=== PATIENT | female | born 1975 | race Caucasian/White ===

== ENCOUNTER 2018-08-28 10:59 | Outpatient (REF) | payer BC, SELFPAY ==
--- NOTE | 2018-08-28 10:00 | PAPFT_PTH ---
PATIENT: Ana Lorenz LOC: [facility] U#:[id number] AGE/SX: 43/F ROOM: RE08/28/[address]: CHARISMA Toribio : 1975 BED: DIS: 08/28/2018 SPEC #: [id number] RECD: 08/28/18 17:52 STATUS: SANTA REQ #: [id number] MEENA: 08/28/18 10:[address]: Estefanía Jenkins DEPT: [facility] Cytology RECD BY: Teressa Davis ENTERED: 08/28/18 17:52 SP TYPE: PAPFT OTHR DR: Rosina Collins V Tissues: 1 - CX/ENDOCX FOR PAP SMEARS Procedures: PAP THIN PREP/UVM Screening HPV DNA PROBE Comments: [id number]
[2018-08-29 14:34] LABS: Chlamydia Result Negative; GC Result Negative; Specimen Description CERVIX
== END 2018-08-28 11:19 ==
LOC: LBN 10:59
PROVIDERS: PCP Family Medicine; Visit Provider Nurse Practitioner Family
DX: Z11.3 Encounter for screening for infections with a predominantly sexual mode of transmission (principal); Z12.4 Encounter for screening for malignant neoplasm of cervix; Z11.51 Encounter for screening for human papillomavirus (HPV)
CPT/HCPCS: 87491; 87591; 88142; 87624

== ENCOUNTER 2018-09-25 00:29 | Outpatient (CLI) | payer BC, SELFPAY ==
--- NOTE | 2018-09-25 16:18 | DI.MAMMO_ITS ---
SYMPTOM/DIAGNOSIS: SCREENING Z12.31 MAMMOGRAM: 09/25 Mammograms were interpreted according to the usual protocol including computer analysis with CAD system, tomosynthesis and C view imaging. The breasts are heterogeneously dense. No dominant mass or clumped microcalcification identified in either breast. Today's examination is a baseline examination. CONCLUSION: No specific evidence of malignancy at this time. Routine screening examinations are suggested at yearly intervals due to the family history of breast carcinoma. Category 1, breast density category C. SA ASSESSMENT OF FINDINGS: Negative. Category 1. Patient will receive a letter notifying them of these results. Bi-RADS category C. The breasts are heterogeneously dense, which may obscure small masses.
== END 2018-09-25 00:49 ==
PROVIDERS: PCP Family Medicine; Visit Provider Nurse Practitioner Family
DX: Z12.31 Encounter for screening mammogram for malignant neoplasm of breast (principal); Z80.3 Family history of malignant neoplasm of breast
CPT/HCPCS: 77063; 77067

== ENCOUNTER 2021-09-07 15:56 | Outpatient (REF) | payer BC, SELFPAY ==
--- NOTE | 2021-09-07 14:30 | PAPFT_PTH ---
PATIENT: Ana Lorenz LOC: [facility] U#:[id number] AGE/SX: 46/F ROOM: RE09/07/[address]: CHARISMA Toribio : 1975 BED: DIS: 09/07/2021 SPEC #: [id number] RECD: 09/07/21 17:50 STATUS: SANTA REQ #: [id number] MEENA: 09/07/21 14:[address]: Estefanía Jenkins DEPT: [facility] Cytology RECD BY: Teressa Davis ENTERED: 09/07/21 17:50 SP TYPE: PAPFT OTHR DR: Rosina Collins V Tissues: 1 - CX/ENDOCX FOR PAP SMEARS Procedures: PAP THIN PREP/UVM Screening HPV DNA PROBE Comments: [id number]
== END 2021-09-07 15:57 | disposition home or self-care (01) ==
LOC: LBN 15:56
PROVIDERS: PCP Family Medicine; Visit Provider Nurse Practitioner Family
DX: Z12.4 Encounter for screening for malignant neoplasm of cervix (principal); Z11.51 Encounter for screening for human papillomavirus (HPV)
CPT/HCPCS: 88142; 87624

== ENCOUNTER → 2021-10-18 00:12 | Outpatient (CLI) | payer BC, SELFPAY ==
--- NOTE | 2021-10-18 16:30 | DI.MAMMO_ITS ---
Exam(s) MAMMO SCREENING EXAM: MAMMO SCREENING CLINICAL HISTORY: screening TECHNIQUE: Mammograms were interpreted according to the usual protocol including computer analysis w [employer] CAD system, tomosynthesis and C-view imaging. COMPARISON: 2019 FINDINGS: The breasts are composed of heterogeneously dense fibroglandular densities, Breast Density category C . No suspicious masses or suspicious microcalcifications are seen. No skin thickening or abnormal axillary lymph nodes are seen. There has been no significant change from prior exams. IMPRESSION: BI-RADS Category 1, Negative mammogram. Yearly screening mammography is recommended. Breast Density Category C, heterogeneously Dense. The mammogram demonstrates the patient's breast tissue is dense. Dense breast tissue is very common a nd is not abnormal but dense breast tissue can make it harder to find cancer on a mammogram. Also, de nse breast tissue may increase breast cancer risk. This information about the result of the mammogram report was provided to the patient to raise their awareness. Use this report when you speak with the patient about their risks for breast cancer, which includes their family history. At that time, you may recommend additional screening tests (Ultrasound or MRI) as they might be useful based on their r isk. A negative radiographic report should not delay biopsy if a dominant or clinically suspicious mass is present. Up to ten percent of cancers are not identified on mammography. A negative report may reinforce clinical impression. Adenosis and dense breasts may obscure an underlying neoplasm. False positive reports average 6 to 10%.
== END ==
PROVIDERS: PCP Family Medicine; Visit Provider Nurse Practitioner Family
DX: Z12.31 Encounter for screening mammogram for malignant neoplasm of breast (principal)
CPT/HCPCS: 77063; 77067

== ENCOUNTER 2022-08-21 07:39 | Day surgery (SDC) | payer BC, SELFPAY ==
[2022-08-21 08:05] VITALS: BP 112/62; PULSE 55; RESP 17; TEMP 36.3; O2SAT 98
[2022-08-21] MEDS: Lactated Ringers 1,000 ML 80 ML IV (08:25)
--- NOTE | 2022-08-21 08:42 | W.ANESPRE ---
General Info Date of Service Date Performed: 08/21/22 Height: 5 ft 5 in Weight: 75.8 kg Body Mass Index (BMI): 27.8 Surgical Procedure: Operation Date: 08/21/22 09:05 Proposed Procedure Side Surgeon p Colonoscopy Davie Ace MD Meds Allergies and Home Medications Allergies Allergy/AdvReac Type Severity Reaction Status Date / Time Sulfa (Sulfonamide Allergy Intermediate Rash Verified 08/21/22 08:15 Antibiotics) Penicillins Allergy Verified 08/21/22 08:15 Home Medication Medication Instructions Recorded levonorgestrel 21 mcg/24 hours (8 1 device intrauterine ONCE 11/10/18 yrs) 52 mg intrauterine device (Mirena) fexofenadine 60 mg tablet ([place]iet[place] 60 mg PO DAILY 09/07/21 Allergy) fluticasone propionate 50 1 spray intranasal DAILY PRN 09/07/21 mcg/actuation nasal spray,suspension (Flonase Allergy Relief) bisacodyl 5 mg tablet,delayed 5 mg PO ONCE colonscopy bowel prep 08/02/22 release (Dulcolax (bisacodyl)) #4 tabs polyethylene glycol 3350 17 238 g PO ONCE colonoscopy prep 08/02/22 gram/dose oral powder #238 grams Current Visit Medications: Current Medications Generic Name Dose Route Start Last Admin Trade Name Freq PRN Reason Stop Dose Admin Ringer's Solution 1,000 mls @ 80 mls/hr 08/21/22 06:00 08/21/22 08:25 IV 08/21/22 23:59 80 mls/hr INFUSION ISAÍAS Administration IV Miscellaneous Supplies 1 each 08/21/22 06:00 Iv Access IV 08/21/22 23:59 DIRECTED ISAÍAS Sodium Chloride 0 ml 08/21/22 06:00 Normal Saline Flush 10 Ml Syr IV 08/21/22 23:59 PRN PRN Sodium Chloride 0 ml 08/21/22 06:00 Normal Saline 10 Ml Vial IJ 08/21/22 23:59 DIRECTED PRN Sterile Water 0 ml 08/21/22 06:00 Water,Injection,Sterile 10 Ml Vial IJ 08/21/22 23:59 DIRECTED PRN PFSH Active Problems Active Problems: Problem Status Onset Code Encounter for insertion of mirena IUD Z30.430 Asthma J45.909 IUD surveillance Z30.431 Medical History Medical History Colon cancer screening Food allergy History of tobacco use Sinus congestion Tobacco Smoking/Tobacco Use Status: Former Tobacco Use Alcohol Alcohol Intake: never Substance Use Substance use: Never Substance use type: does not use Prental History History 3 Para 3 Hx # Term Pregnancies Multiple births Hx # Pregnancies Ectopic pregnancies AB induced Hx Number of Living Children AB spontaneous Vital Signs and Lab Results Vital Signs Most Recent Vital Signs in EMR: Most Recent Vital Signs Temp Pulse Resp BP Pulse Ox 36.3 C L 55 L 17 112/62 98 08/21/22 08:05 08/21/22 08:05 08/21/22 08:05 08/21/22 08:05 08/21/22 08:05 Point of Care Results Point of Care Results: POC- Test(urine) Negative 08/21/22 08:17 Lab Results Blood Type / Crossmatch: No Data to Display Complete Blood Count: No Data to Display Complete Metabolic Panel: No Data to Display Liver Function Panel: No Data to Display Coagulation Panel: No Data to Display Cardiac Panel: No Data to Display Arterial Blood Gas: No Data to Display Venous Blood Gas: No Data to Display Pancreas Panel: No Data to Display Thyroid Panel: No Data to Display Infectious Disease: No Data to Display Blood Cultures: No Data to Display Toxicology Panel: No Data to Display Panel: No Data to Display Anesthesia Assessment and Plan Anesthesia History Personal History: No History of General Anesthesia Family History: No Family History of Anesthesia Complications Exercise Tolerance Exercise Tolerance: Metabolic Equivalents>4 Pertinent Negatives Pertinent Negatives: No Symptoms of GERD Cardiac & Pulmonary Exam Cardiac Exam: Normal S1/S2 Heart Sounds Pulmonary Exam: Clear Bilateral Breath Sounds Implantable Cardiac Device Does patient have a Pacemaker or an ICD?: No Airway Exam Known Difficult Airway: No Mallampati Class: 2 Mouth Opening: Normal (> 3cm) Thyromental Distance: Greater than 3 cm Neck Range of Motion: Full ROM Neck Circumference: Normal Teeth Condition: Normal Dentition ASA Classification ASA Score: ASA 1 Emergency Case?: No NPO Status NPO Status: NPO Clears >2 hours, Solids >8 hours Status Status: Not Relevant due to Medical History Anesthesia Plan Resuscitation Status: Full Code Anesthesia Technique: General Anesthesia Airway Planned: Natural Airway Monitors Used: Standard Monitors
[2022-08-21 08:44] VITALS: BMI 27.8
--- NOTE | 2022-08-21 09:10 | BOWEL_PTH ---
PATIENT: Ana Lorenz LOC: [facility] U#:[id number] AGE/SX: 47/F ROOM: RE08/21/[address]: Davie Ace : 1975 BED: DIS: 08/21/2022 SPEC #: [id number] RECD: 08/21/22 11:26 STATUS: SANTA RE #: [id number] MEENA: 08/21/22 09:[address]: Davie Ace DEPT: Surgical Specimen RECD BY: Teressa Davis ENTERED: 08/21/22 11:26 SP TYPE: Bowel OTHR DR: Alexandrea Mcnulty Tissues: 1 - BIOPSY BOWEL Procedures: GROSS AND MICRO LEVEL 4 Comments: [id number]
[2022-08-21 09:17] VITALS: BP 93/49; PULSE 63; RESP 16; TEMP 36.3; O2SAT 99
--- NOTE | 2022-08-21 09:17 | W.COLOREPORT ---
Date of service: 08/21/22 Time of Service: 09:17 Colonoscopy Report Procedure Description: Procedures performed: 1. Colonoscopy with snare polypectomy x1 Preoperative diagnosis: Screening colonoscopy Postoperative diagnosis: Colon polyp Surgeon: Carmita Ace Anesthesia: Ronni Indication for procedure: Patient is a 47 yo woman due for her for screening colonoscopy. She does not have a family history of colorectal cancer. She is not having any symptoms. Findings: Terminal ileum was normal. A 3 to 5 mm sessile polyp was removed from the descending colon with hot snare technique.? No diverticuli were seen. No noticeable perianal or hemorrhoidal disease. Surveillance/follow-up recommendations: Depending on the pathology of the polyp, it is suspected to be adenomatous, 7-10-year follow-up should be acceptable. If hyperplastic by chance than 10 years. Complications: None Blood loss: Minimal Specimens:?? YES Quality of Prep:?? Good Procedure in detail: Written consent was obtained from the patient who was in agreement with the risks, benefits and indications of the procedure.? We went to the endoscopy suite and laid the patient in left lateral decubitus position.? Anesthesia was administered which was tolerated well.? A timeout was performed and when we are all in agreement we began the procedure. Digital rectal exam and visual examination was performed and within normal limits.? A well?lubricated colonoscope was advanced without difficulty all the way to the cecum identified by the ileocecal valve, and triangular folds and appendiceal orifice.? The terminal ileum was deeply intubated and appeared normal. It was then slowly withdrawn.?? Retroflexion was performed in the rectum.? The findings/interventions are noted above. The scope was then removed and the patient tolerated the procedure well and was then taken back to the PACU in hemodynamically stable condition.
--- NOTE | 2022-08-21 09:26 | W.ANESPOSTOP ---
Postoperative Evaluation Date, Time and Location Date Performed: 08/21/22 Time Performed: 09:26 Patient Location: Day Surgery Unit Vital Signs Most Recent Imported Vital Signs: Most Recent Vital Signs Temp Pulse Resp BP Pulse Ox 36.3 C L 55 L 17 112/62 98 08/21/22 08:05 08/21/22 08:05 08/21/22 08:05 08/21/22 08:05 08/21/22 08:05 Pain Score Most Recent Pain Score: Most Recent Pain Score Pain Level 0 08/21/22 08:05 Assessment Mental Status: Awake (Alert & Oriented to Patient Baseline) Airway and Respiratory Function: Patent airway with normal (patient baseline) respiratory exam Cardiovascular Function: Hemodynamically Stable Hydration Status: Adequately Hydrated Nausea & Vomiting: No Nausea or Vomiting Pain: Pt. Denies Any Pain Peripheral Nerve Block: Patient did not receive a nerve block
[2022-08-21 09:50] VITALS: BP 116/80; PULSE 61; RESP 16; TEMP 36.4; O2SAT 100
== END 2022-08-21 10:04 | disposition home or self-care (01) ==
PROVIDERS: PCP Physician Assistant Medical; Visit Provider Student in an Organized Health Care Education/Training Program
PROC: 0DJD8ZZ Inspection of Lower Intestinal Tract, Via Natural or Artificial Opening Endoscopic (ICD-10-PCS; CPT 45378; principal; 2022-08-21 09:00)
DX: Z12.11 Encounter for screening for malignant neoplasm of colon (principal); D12.4 Benign neoplasm of descending colon
CPT/HCPCS: 45385; 81025; 88305; J2001

== ENCOUNTER 2024-04-06 03:05 | Outpatient (CLI) | payer BC, SELFPAY ==
--- NOTE | 2024-04-06 07:45 | DI.MAMMO_ITS ---
Exam(s) MAMMO SCREENING EXAM: MAMMO SCREENING CLINICAL HISTORY: screening,z12.31 TECHNIQUE: Bilateral full field digital CC and MLO mammographic images were obtained with 3D tomosyn thesis and utilizing computer aided detection (CAD). COMPARISON: Available for comparison. FINDINGS: Masses/Architectural Distortion: None seen. Microcalcifications: No suspicious pleomorphic-type are seen. Skin Thickening/Nipple Retraction: None. IMPRESSION: 1. No significant interval change with no specific features of malignancy noted. 2. Unless there is more urgent need, screening mammography is recommended, as per [employer] guidelines. BI-RADS Category 1 - Negative Breast Density - Category C - Heterogeneously dense Breast density category C or D implies that the patient has dense breast tissue. Dense breast tissue is very common and is not abnormal but dense breast tissue can make it harder to find cancer on a ma mmogram. Also, dense breast tissue may increase their breast cancer risk. This information about the result of the mammogram report was provided to the patient to raise their awareness. Use this report when you speak with the patient about their risks for breast cancer, which includes their family hist ory. At that time, you may recommend for more screening tests (Ultrasound or MRI) as they might be us eful based on their risk. A negative radiographic report should not delay biopsy if a dominant or clinically suspicious mass is present. Up to ten percent of cancers are not identified on mammography. A negative report may reinforce clinical impression. Adenosis and dense breasts may obscure an underlying neoplasm. False positive reports average 6 to 10%. Patient will receive a letter notifying them of these results.
== END 2024-04-06 03:25 ==
LOC: DI 03:05
PROVIDERS: PCP Physician Assistant Medical; Visit Provider Obstetrics & Gynecology
DX: Z12.31 Encounter for screening mammogram for malignant neoplasm of breast (principal); R92.333 Mammographic heterogeneous density, bilateral breasts
CPT/HCPCS: 77063; 77067

== ENCOUNTER 2024-07-21 16:41 | Outpatient (REF) | payer BC, SELFPAY ==
[2024-07-21 15:18] LABS: Abs Immature Grans 0.03 10^3/uL (0.0-0.06); Absolute Basophil Count 0.05 10^3/uL (0.0-0.2); Absolute Eosinophil Count 0.15 10^3/uL (0.0-0.7); Absolute Monocyte Count 0.48 10^3/uL (0.1-0.8); Basophils % 0.7 %; Eosinophils % 2.1 %; HCT 42.2 % (36.0-46.0); HGB 13.7 g/dL (11.2-15.7); Immature Grans % 0.4 %; MCH 30.4 pg (27.0-33.0); MCHC 32.5 % (32.0-36.0); MCV 94 fL (80-95); MPV 10.6 fL (8.0-11.0); Monocytes % 6.7 %; Neutrophils % 65.1 %; Platelet Count 256 10^3/uL (130-400); RDW 13.6 % (11.7-14.6); WBC 7.21 10^3/uL (4.4-10.8)
[2024-07-21 15:44] LABS: ALT 27 U/L (14-59); AST 22 U/L (15-37); Albumin 3.8 g/dL (3.4-5.0); Alkaline Phosphatase 82 U/L (46-116); Anion Gap 6.6 mmol/L (3-11); BUN 10 mg/dL (7-18); Bilirubin, Total 0.4 mg/dL (0.2-1.0); CO2 27.4 mmol/L (21.0-32.0); CREATININE 0.9 mg/dL (0.55-1.02); Calcium 8.9 mg/dL (8.5-10.1); Chloride 105 mmol/L (98-107); Estimated GFR 78.86 (mL/min/1.73m2); Glucose 94 mg/dL (74-106); Sodium 139 mmol/L (136-145); Total Protein 7.7 g/dL (6.4-8.2)
== END 2024-07-21 16:42 | disposition home or self-care (01) ==
LOC: NCHCN 16:41
PROVIDERS: PCP Physician Assistant Medical; Visit Provider Physician Assistant Medical
DX: Z00.00 Encounter for general adult medical examination without abnormal findings (principal)
CPT/HCPCS: 80053; 84443; 85025